=== PATIENT | female | born 1985 | race Caucasian/White ===

== ENCOUNTER 2021-05-09 13:27 | Emergency (ER) | payer SELFPAY ==
[~2021-05-09] VITALS: Ht 167.6 cm; Wt 49.0 kg
[2021-05-09 15:05] VITALS: BP 111/74
[2021-05-09] MEDS ORDERED: ORPHENADRINE CITRATE 60 MG/2 ML VIAL. IM ONE (15:30)
[2021-05-09] MEDS ORDERED: LIDOCAINE (700MG/PATCH) PATCH. TD ONE (15:30)
[2021-05-09] MEDS ORDERED: KETOROLAC 60 MG/2 ML VIAL. IM ONE (15:30)
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
[2021-05-09] MEDS ORDERED: ORPH100T PO (16:30)
== END 2021-05-09 16:39 | disposition home or self-care (01) ==
LOC: ER 13:27
DX: S80.12XA Contusion of left lower leg, initial encounter (principal); S30.0XXA Contusion of lower back and pelvis, initial encounter; V49.49XA Driver injured in collision with other motor vehicles in traffic accident, initial encounter; Y92.488 Other paved roadways as the place of occurrence of the external cause; Y93.89 Activity, other specified; Y99.8 Other external cause status
CPT/HCPCS: 81025; 96372; 99284; J1885; J2360